=== PATIENT | female | born 1985 | race Caucasian/White ===

== ENCOUNTER 2017-12-31 20:26 | Emergency (ER) | payer OTHER ==
--- NOTE | 2017-12-31 20:59 | RADIOLOGY REPORT (SQ) ---
EXAM DESCRIPTION: HAND LEFT 3 VIEWS COMPLETED DATE/TIME: 12/31/2017 8:45 pm REASON FOR STUDY: injury COMPARISON: None. EXAM PARAMETERS: NUMBER OF VIEWS: Three views. TECHNIQUE: AP, lateral and oblique radiographic images acquired of the left hand. LIMITATIONS: None. FINDINGS: MINERALIZATION: Normal. BONES: No acute fracture or dislocation. No worrisome bone lesions. JOINTS: No effusion. SOFT TISSUES: No significant soft tissue swelling. No radiopaque foreign body. OTHER: No other significant finding. IMPRESSION: NO FRACTURE. TECHNICAL DOCUMENTATION: JOB ID: [id number] [place]-72 2010 [employer]- All Rights Reserved Reading location - IP/workstation name: [email or web address]
--- NOTE | 2017-12-31 22:02 | ER Document Report ---
HPI - HPI Patient complains to provider of: Finger injury Onset: This afternoon Onset/Duration: Sudden Quality of pain: Sharp Pain Level: 4 Context: Patient states she was trying to pull a drink out of a cooler and the drink got stuck. Patient states she started pulling on the drink and her hand came back hitting the cooler door after the drink became dislodged. Patient complains of left third finger pain. Patient denies any other injuries. Associated Symptoms: Other - Left hand pain Exacerbated by: Movement Relieved by: Denies Similar symptoms previously: No Recently seen / treated by doctor: No - ROS ROS below otherwise negative: Yes Systems Reviewed and Negative: Yes All other systems reviewed and negative - NEURO Neurology: DENIES: Weakness - REPRODUCTIVE LMP: na - MUSCULOSKELETAL Musculoskeletal: REPORTS: Extremity pain - DERM Skin Color: Normal Skin Problems: None Past Medical History - General Information source: Patient - Social History Smoking Status: Never Smoker Frequency of alcohol use: None Drug Abuse: None Occupation: [employer] Family History: Reviewed & Not Pertinent Musculoskeletal Medical History: Reports Hx Arthritis Past Surgical History: Reports: Hx Orthopedic Surgery Vertical Provider Document - CONSTITUTIONAL Agree With Documented VS: Yes Exam Limitations: No Limitations General Appearance: WD/WN, No Apparent Distress - INFECTION CONTROL TRAVEL OUTSIDE OF THE [place] IN LAST 30 DAYS: No - HEENT HEENT: Atraumatic, Normocephalic - NECK Neck: Normal Inspection - RESPIRATORY Respiratory: No Respiratory Distress - CARDIOVASCULAR Pulses: Normal: Radial - MUSCULOSKELETAL/EXTREMETIES Musculoskeletal/Extremeties: MAEW, FROM, Tender - Left third finger tenderness with flexion, no tendon deficit, no deformity, no ecchymosis, No Edema. negative: Eccymosis - NEURO Level of Consciousness: Awake, Alert, Appropriate Motor/Sensory: No Motor Deficit, No Sensory Deficit - DERM Integumentary: Warm, Dry, No Rash Course - Vital Signs Vital signs: Temp Pulse Resp BP Pulse Ox 98.9 F 58 L 18 128/59 H 100 12/31/17 21:04 12/31/17 21:04 12/31/17 21:04 12/31/17 21:04 12/31/17 21:04 - Diagnostic Test Radiology reviewed: Reports reviewed Procedures - Immobilization Left Finger 3rd digit Pre-Proc Neuro Vasc Exam: Normal Immobilizer type: Finger splint (Static) Performed by: PCT Post-Proc Neuro Vasc Exam: Normal Alignment checked and good: Yes Discharge - Discharge Clinical Impression: Finger sprain Qualifiers: Encounter type: initial encounter Finger: middle finger Sprain of finger site: unspecified site Laterality: left Qualified Code(s): S63.613A - Unspecified sprain of left middle finger, initial encounter Condition: Stable Disposition: HOME, SELF-CARE Instructions: Ice & Elevation ([facility]), Sprained Finger ([facility]), Temporary Splint ( [facility]) Additional Instructions: Return immediately for any new or worsening symptoms Followup with your primary care provider, call tomorrow to make a followup appointment Wear the finger splint for the next 3-4 days and then remove. If still having pain follow-up with orthopedics for further evaluation. Forms: Return to Work Referrals: [facility] FOR [facility]ERY ([facility]) [Provider Group] - Follow up as needed
[2017-12-31 22:35] VITALS: BP 119/84
== END 2017-12-31 22:35 | disposition home or self-care (01) ==
LOC: ER 20:26
DX: S63.613A Unspecified sprain of left middle finger, initial encounter (principal); X50.0XXA Overexertion from strenuous movement or load, initial encounter
CPT/HCPCS: 99283

== ENCOUNTER 2018-02-26 22:20 | Emergency (ER) | payer OTHER ==
--- NOTE | 2018-02-26 22:30 | ER Document Report ---
HPI - HPI Patient complains to provider of: Fever chills flank pain Onset: Yesterday Pain Level: 3 Context: 32-year-old non-smoker normally healthy developed fever of 102 with chills and sweats, urinary urgency and vomiting yesterday. Today she went to work at [employer] and still feels sick and has left flank pain. No fever today. No vomiting today. She took [id number] Azo and cranberry juice yesterday. She is prone to urinary tract infections. No known allergies. Associated Symptoms: None Exacerbated by: Denies Past Medical History - General Information source: Patient - Social History Smoking Status: Never Smoker Frequency of alcohol use: None Drug Abuse: None Occupation: [employer] Lives with: Family Family History: Reviewed & Not Pertinent Renal/ Medical History: Denies: Hx Peritoneal Dialysis Musculoskeletal Medical History: Reports Hx Arthritis Past Surgical History: Reports: Hx Orthopedic Surgery Vertical Provider Document - INFECTION CONTROL TRAVEL OUTSIDE OF THE [place] IN LAST 30 DAYS: No Course - Re-evaluation Re-evalutation: 02/26/18 23:09 Urinalysis shows 1+ bacteria and greater than 182 WBCs. Urine culture is pending. Since she has flank pain I will give her Rocephin 1 g IM with a prescription for cephalexin that she can take tomorrow. 02/26/18 23:09 - Vital Signs Vital signs: Temp Pulse Resp BP Pulse Ox 98.7 F 76 16 131/85 H 97 02/26/18 22:25 02/26/18 22:25 02/26/18 22:25 02/26/18 22:25 02/26/18 22:25 Discharge - Discharge Clinical Impression: Urinary tract infection, Flank pain Condition: Good Disposition: HOME, SELF-CARE Instructions: Acetaminophen, Urinary Tract Infection ([facility]), Rocephin ([facility]), Cephalexin ([facility]), Flank Pain ([facility]) Additional Instructions: Tylenol up to 4000 mg a day for pain, fever Rocephin 1 g is been given to you to treat the urinary tract infection Return to the emergency room if you develop a fever and vomiting again Cephalexin 4 times a day start that tomorrow Urine culture is pending Prescriptions: Cephalexin Monohydrate [Keflex 500 mg Capsule] 500 mg PO QID #40 capsule Forms: Return to Work Referrals: BOB OLGUIN FNP [NO LOCAL MD] - Follow up tomorrow
[2018-02-26 22:56] LABS: APPEARANCE,URINE CLOUDY; BILIRUBIN,URINE NEGATIVE (NEGATIVE); COLOR,URINE YELLOW; GLUCOSE, URINE NEGATIVE (NEGATIVE); KETONES,URINE NEGATIVE (NEGATIVE); LEUKOCYTE ESTERASE,URINE LARGE (NEGATIVE); NITRITE,URINE NEGATIVE (NEGATIVE); PROTEIN,URINE NEGATIVE (NEGATIVE); URINE SPECIFIC GRAVITY 1.018; UROBILINOGEN,URINE NEGATIVE mg/dL (<2.0)
[2018-02-26] MEDS ORDERED: CEFTRIAXONE INJ 1000 MG VIAL IM ONE (23:09)
[2018-02-26] MEDS ORDERED: LIDOCAINE 1% INJ-PF (10 MG/ML) 30 ML SDV INJ ONE (23:23)
[2018-02-26 23:46] VITALS: BP 124/75
== END 2018-02-27 00:03 | disposition home or self-care (01) ==
LOC: ER 22:20
DX: N39.0 Urinary tract infection, site not specified (principal); R50.9 Fever, unspecified; R10.9 Unspecified abdominal pain; M19.90 Unspecified osteoarthritis, unspecified site
CPT/HCPCS: 99284; 96372; 87086; 87088; 81001; 87186; J3490; J0696

== ENCOUNTER 2018-06-03 17:13 | Emergency (ER) | payer OTHER ==
--- NOTE | 2018-06-03 18:25 | ER Document Report ---
ED Medical Screen (RME) - General Chief Complaint: Chest Pain Stated Complaint: CHEST PAIN, SOB, FINGER/TOE NUMBNESS Time Seen by Provider: 06/03/18 18:19 Mode of Arrival: Ambulatory Information source: Patient Notes: 33-year-old female presents emergency department with complaints of chest pain. Patient states that the pain started yesterday after she received some bad news about her family. She describes it as a pressure sensation in the right chest. No alleviating factors. No exacerbating factors. Patient is having some intermittent shortness of breath and numbness and tingling in the bilateral arms. Patient denies a history of hypertension, hyperlipidemia, diabetes, coronary artery disease, smoking, family history of coronary artery disease. I have greeted and performed a rapid initial assessment of this patient. A comprehensive ED assessment and evaluation of the patient, analysis of test results and completion of the medical decision making process will be conducted by additional ED providers. PHYSICAL EXAMINATION: GENERAL: Well-appearing, well-nourished and in no acute distress. HEAD: Atraumatic, normocephalic. EYES: Pupils equal round extraocular movements intact, conjunctiva are normal. ENT: Nares patent NECK: Normal range of motion LUNGS: No respiratory distress Musculoskeletal: Normal range of motion NEUROLOGICAL: Normal speech, normal gait. PSYCH: Normal mood, normal affect. SKIN: Warm, Dry, normal turgor, no rashes or lesions noted. TRAVEL OUTSIDE OF THE [place] IN LAST 30 DAYS: No - Related Data Allergies/Adverse Reactions: No Known Allergies Allergy (Verified 06/03/18 17:46) Past Medical History Renal/ Medical History: Denies: Hx Peritoneal Dialysis Musculoskeltal Medical History: Reports Hx Arthritis Past Surgical History: Reports: Hx Orthopedic Surgery Physical Exam - Vital signs Vitals: Temp Pulse Resp BP Pulse Ox 98.3 F 86 20 118/70 100 06/03/18 17:42 06/03/18 17:42 06/03/18 17:42 06/03/18 17:42 06/03/18 17:42 Course - Vital Signs Vital signs: Temp Pulse Resp BP Pulse Ox 98.3 F 86 20 118/70 100 06/03/18 17:42 06/03/18 17:42 06/03/18 17:42 06/03/18 17:42 06/03/18 17:42
[2018-06-03] MEDS ORDERED: ASPIRIN 81 MG TABLET, CHEWABLE PO ONE (18:26)
[2018-06-03 18:48] LABS: ABSOLUTE BASOPHILS # (AUTO) 0.1 10^3/uL (0.0-0.2); ABSOLUTE EOSINOPHILS # (AUTO) 0.1 10^3/uL (0.0-0.6); ABSOLUTE LYMPHOCYTES (AUTO) 2.4 10^3/uL (0.5-4.7); ABSOLUTE MONOCYTES (AUTO) 0.8 10^3/uL (0.1-1.4); ABSOLUTE NEUT (AUTO) 5.5 10^3/uL (1.7-8.2); BASOPHILS % (AUTO) 0.7 % (0-2); EOSINOPHILS % (AUTO) 1.1 % (0-6); HEMATOCRIT 43.4 % (36.0-47.0); HEMOGLOBIN 14.7 g/dL (12.0-15.5); LYMPHOCYTES % (AUTO) 27.3 % (13-45); MEAN CORPUSCULAR HGB CONC 33.9 g/dL (32.0-36.0); MEAN CORPUSCULAR VOLUME 89 fl (80-97); MONOCYTES % (AUTO) 9.2 % (3-13); PLATELET COUNT 256 10^3/uL (150-450); RED CELL DISTRIBUTION WIDTH 13.1 % (11.5-14.0); SEGMENTED NEUTROPHILS % (AUTO) 61.7 % (42-78); TOTAL CELLS COUNTED % (AUTO) 100 %; WHITE BLOOD COUNT 8.9 10^3/uL (4.0-10.5)
--- NOTE | 2018-06-03 18:52 | EKG REPORT ---
SEVERITY:- ABNORMAL ECG - SINUS RHYTHM FIRST DEGREE AV BLOCK : Confirmed by: Santana Aguilar MD 03-Jun-2018 18:52:15
[2018-06-03 19:01] LABS: ALANINE AMINOTRANSFERASE 13 U/L (9-52); ALBUMIN 5.2 g/dL (3.5-5.0); ALKALINE PHOSPHATASE 66 U/L (38-126); ANION GAP 13 (5-19); ASPARTATE AMINO TRANSFERASE 27 U/L (14-36); BILIRUBIN,DIRECT 0.4 mg/dL (0.0-0.4); BILIRUBIN,TOTAL 0.6 mg/dL (0.2-1.3); BLOOD UREA NITROGEN 11 mg/dL (7-20); CARBON DIOXIDE 23 mmol/L (22-30); CHLORIDE 106 mmol/L (98-107); GLUCOSE 81 mg/dL (75-110); POTASSIUM 4.4 mmol/L (3.6-5.0); SODIUM 141.6 mmol/L (137-145); TOTAL PROTEIN 8.6 g/dL (6.3-8.2)
--- NOTE | 2018-06-03 19:06 | RADIOLOGY REPORT (SQ) ---
EXAM DESCRIPTION: CHEST SINGLE VIEW COMPLETED DATE/TIME: 06/03/2018 6:57 pm REASON FOR STUDY: chest pain COMPARISON: None. EXAM PARAMETERS: NUMBER OF VIEWS: One view. TECHNIQUE: Single frontal radiographic view of the chest acquired. RADIATION DOSE: NA LIMITATIONS: None. FINDINGS: LUNGS AND PLEURA: No opacities, masses or pneumothorax. No pleural effusion. MEDIASTINUM AND HILAR STRUCTURES: No masses. Contour normal. HEART AND VASCULAR STRUCTURES: Heart normal in size. Normal vasculature. BONES: No acute findings. HARDWARE: None in the chest. OTHER: No other significant finding. IMPRESSION: NO ACUTE RADIOGRAPHIC FINDING IN THE CHEST. TECHNICAL DOCUMENTATION: JOB ID: [id number] [employer]- All Rights Reserved Reading location - IP/workstation name: [email or web address]
[2018-06-03 19:25] LABS: APPEARANCE,URINE SLIGHTLY-CLOUDY; BILIRUBIN,URINE NEGATIVE (NEGATIVE); COLOR,URINE YELLOW; GLUCOSE, URINE NEGATIVE (NEGATIVE); KETONES,URINE NEGATIVE (NEGATIVE); LEUKOCYTE ESTERASE,URINE NEGATIVE (NEGATIVE); NITRITE,URINE NEGATIVE (NEGATIVE); PROTEIN,URINE NEGATIVE (NEGATIVE); URINE SPECIFIC GRAVITY 1.026
[2018-06-03 19:36] LABS: URINE AMPHETAMINES SCREEN NEGATIVE; URINE BARBITURATES SCREEN NEGATIVE; URINE BENZODIAZEPINES SCREEN UNCONFIRMED POSITIVE; URINE COCAINE SCREEN NEGATIVE; URINE MARIJUANA (THC) SCREEN NEGATIVE; URINE METHADONE SCREEN NEGATIVE; URINE PHENCYCLIDINE SCREEN NEGATIVE
--- NOTE | 2018-06-03 20:28 | ER Document Report ---
ED General - General Chief Complaint: Chest Pain Stated Complaint: CHEST PAIN, SOB, FINGER/TOE NUMBNESS Time Seen by Provider: 06/03/18 18:19 Primary Care Provider: DALE,PORTIA [Primary Care Provider] - Follow up as needed Mode of Arrival: Ambulatory Notes: Patient is a 33-year-old female that comes to the emergency department for chief complaint of pain in the right side of her chest that radiates down her right arm and tingling in all her extremities. Symptoms started yesterday immediately when she received bad news about her grandfather having fallen and broken bones. She states she is upset that she is unable to travel to him in [place]. She states that the episode was really bad, she was short of breath, she became shaky and sweaty, she states that this did gradually resolve but she has remained anxious and pain since that time. Past medical history of anxiety, takes Topamax as a mood stabilizer and for weight loss. Denies smoking, recreational drugs, personal or family history of heart disease, personal or family history of blood clot. She is not on a contraceptive. TRAVEL OUTSIDE OF THE [place] IN LAST 30 DAYS: No - Related Data Allergies/Adverse Reactions: No Known Allergies Allergy (Verified 06/03/18 17:46) Past Medical History - General Information source: Patient - Social History Smoking Status: Never Smoker Drug Abuse: None Lives with: Family Family History: Reviewed & Not Pertinent Patient has suicidal ideation: No Patient has homicidal ideation: No Renal/ Medical History: Denies: Hx Peritoneal Dialysis Musculoskeletal Medical History: Reports Hx Arthritis Psychiatric Medical History: Reports: Hx Anxiety Past Surgical History: Reports: Hx Orthopedic Surgery - Immunizations Immunizations up to date: Yes Hx Diphtheria, Pertussis, Tetanus Vaccination: Yes Review of Systems - Review of Systems Constitutional: See HPI EENT: No symptoms reported Cardiovascular: See HPI Respiratory: See HPI Gastrointestinal: No symptoms reported Genitourinary: No symptoms reported Female Genitourinary: No symptoms reported Musculoskeletal: See HPI Skin: No symptoms reported Hematologic/Lymphatic: No symptoms reported Neurological/Psychological: See HPI Physical Exam - Vital signs Vitals: Temp Pulse Resp BP Pulse Ox 98.3 F 86 20 118/70 100 06/03/18 17:42 06/03/18 17:42 06/03/18 17:42 06/03/18 17:42 06/03/18 17:42 - Notes Notes: GENERAL: Alert, interacts well. No acute distress. HEAD: Normocephalic, atraumatic. EYES: Pupils equal, round, and reactive to light. Extraocular movements intact. ENT: Oral mucosa moist, tongue midline. Oropharynx unremarkable. Airway patent. Nares patent, no nasal septal hematoma, TM's intact. NECK: Full range of motion. Supple. Trachea midline. LUNGS: Clear to auscultation bilaterally, no wheezes, rales, or rhonchi. No respiratory distress. There is some reproducible tenderness over the right pectoralis muscle and with movement of the right arm. Remaining chest exam unremarkable. HEART: Regular rate and rhythm. No murmur ABDOMEN: Soft, non-tender. Non-distended. Bowel sounds present in all 4 quadrants. GENITOURINARY: Deferred EXTREMITIES: Moves all 4 extremities spontaneously. No edema, normal radial and dorsalis pedis pulses bilaterally. No cyanosis. BACK: no cervical, thoracic, lumbar midline tenderness. No saddle anesthesia, normal distal neurovascular exam. NEUROLOGICAL: Alert and oriented x3. Normal speech. [cranial nerves II through XII grossly intact]. PSYCH: Normal affect, normal mood. SKIN: Warm, dry, normal turgor. No rashes or lesions noted. Course - Re-evaluation Re-evalutation: EKG sinus rhythm with no T wave inversions or ST segment changes in consecutive leads. [place] interval is prolonged with first-degree heart block. Otherwise unremarkable exam. Patient did not have dizziness or syncope. She has no cu rrent symptoms. Patient only has symptoms when she feels anxious, she describes symptoms very consistent with a panic attack that occurred yesterday. She has a history of anxiety. No smoking, recreational drugs, lower semi-swelling, recent travel or surgery. PERC score is 0. CBC, chemistry, troponin unremarkable. Chest x-ray unremarkable. Patient asymptomatic except for palpation of the chest wall. Discussed workup in detail. Discussed options and recommendations. Discussed chest wall pain and treatment, patient states she has a muscle relaxer at home left over from a different injury, she also has naproxen at home, she states she will use these. She states that she would like something low-dose to take in the event of a panic attack. She was provided with 0.5 mg Ativan to take only in the case of a panic attack. Discussed follow-up and return precautions in detail. Patient states understanding and agreement with plan. - Vital Signs Vital signs: Temp Pulse Resp BP Pulse Ox 98.4 F 86 12 115/82 100 06/03/18 20:49 06/03/18 17:42 06/03/18 20:49 06/03/18 20:49 06/03/18 20:49 - Laboratory Result Diagrams: 06/03/18 18:37 06/03/18 18:37 Laboratory results interpreted by me: 06/03/18 06/03/18 18:37 19:08 Total Protein 8.6 H Albumin 5.2 H Urine Urobilinogen 2.0 H Discharge - Discharge Clinical Impression: Chest wall pain, Panic attack as reaction to stress Chest pain Qualifiers: Chest pain type: unspecified Qualified Code(s): R07.9 - Chest pain, unspecified Condition: Stable Disposition: HOME, SELF-CARE Additional Instructions: Your workup at this time including EKG, chest x-ray, laboratory workup does not show any concerning findings in regards to your symptoms. Your evaluation indicates both inflammation of the cartilage along the right side of your chest wall and along the pectoralis muscle on the right, this can take time to resolve, I recommend heat to the area, naproxen, muscle relaxer. In the event of panic attack take the prescribed medication only if needed. Continue current medications otherwise. Return if you worsen including difficulty breathing, passing out, severe pain in your chest, vomiting, fever, or any other concerning symptoms. Prescriptions: Lorazepam [Ativan 0.5 mg Tablet] 0.5 mg PO Q4 PRN #10 tab PRN Reason: Forms: Return to Work Referrals: [facility] [Primary [facility] Provider] - Follow up as needed
[2018-06-03 20:54] VITALS: BP 115/82
== END 2018-06-03 21:00 | disposition home or self-care (01) ==
LOC: ER 17:13
DX: F43.0 Acute stress reaction (principal); R07.9 Chest pain, unspecified
CPT/HCPCS: 36415; 71045; 80053; 80307; 81001; 81025; 84484; 85025; 93005; 93010; 99285

== ENCOUNTER 2018-08-10 09:56 | Emergency (ER) | payer OTHER ==
--- NOTE | 2018-08-10 10:21 | ER Document Report ---
ED GI/ - General Chief Complaint: Urinary Frequency Stated Complaint: UTI SYMPTOMS Time Seen by Provider: 08/10/18 10:17 Primary Care Provider: [facility] [Primary Care Provider] - Follow up as needed Mode of Arrival: Ambulatory Information source: Patient Notes: Patient is an otherwise healthy 33-year-old female presenting with chief complaint of dysuria, frequency and urgency. Patient reports history of UTIs in the past, states this feels like a UTI that started on Friday. Patient denies any fevers, nausea, vomiting or diarrhea. TRAVEL OUTSIDE OF THE [place] IN LAST 30 DAYS: No - Related Data Allergies/Adverse Reactions: No Known Allergies Allergy (Verified 06/03/18 17:46) Past Medical History - General Information source: Patient - Social History Smoking Status: Never Smoker Frequency of alcohol use: None Drug Abuse: None Family History: Reviewed & Not Pertinent Renal/ Medical History: Denies: Hx Peritoneal Dialysis Musculoskeletal Medical History: Reports Hx Arthritis Psychiatric Medical History: Reports: Hx Anxiety Past Surgical History: Reports: Hx Orthopedic Surgery - Immunizations Immunizations up to date: Yes Hx Diphtheria, Pertussis, Tetanus Vaccination: Yes Review of Systems - Review of Systems Constitutional: No symptoms reported. denies: Fever EENT: No symptoms reported Cardiovascular: No symptoms reported Respiratory: No symptoms reported Gastrointestinal: No symptoms reported. denies: Abdominal pain, Diarrhea, Nausea, Vomiting Genitourinary: Burning, Dysuria, Frequency, Urgency. denies: Flank pain Female Genitourinary: No symptoms reported Musculoskeletal: No symptoms reported Skin: No symptoms reported Hematologic/Lymphatic: No symptoms reported Neurological/Psychological: No symptoms reported Physical Exam - Vital signs Vitals: Temp Pulse Resp BP Pulse Ox 98.6 F 64 16 123/74 98 08/10/18 10:19 08/10/18 10:19 08/10/18 10:19 08/10/18 10:19 08/10/18 10:19 - Notes Notes: PHYSICAL EXAMINATION: GENERAL: Well-appearing, well-nourished and in no acute distress. HEAD: Atraumatic, normocephalic. EYES: Pupils equal round and reactive to light, extraocular movements intact, conjunctiva are normal. ENT: Nares patent, oropharynx clear without exudates. Moist mucous membranes. NECK: Normal range of motion, supple without lymphadenopathy LUNGS: Breath sounds clear to auscultation bilaterally and equal. No wheezes rales or rhonchi. HEART: Regular rate and rhythm without murmurs ABDOMEN: Soft, nontender, nondistended abdomen. No guarding, no rebound. No masses appreciated. Female : No CVAT. Musculoskeletal: Normal range of motion, no pitting or edema. No cyanosis. NEUROLOGICAL: Cranial nerves grossly intact. Normal speech, normal gait. Normal sensory, motor exams PSYCH: Normal mood, normal affect. SKIN: Warm, Dry, normal turgor, no rashes or lesions noted. Course - Re-evaluation Re-evalutation: Urinalysis positive for nitrites and moderate leukocyte esterase. Culture pending. Will start patient on antibiotics. Patient declines need for Pyridium. - Vital Signs Vital signs: Temp Pulse Resp BP Pulse Ox 98.9 F 52 L 18 121/65 99 08/10/18 11:24 08/10/18 11:24 08/10/18 11:24 08/10/18 11:24 08/10/18 11:24 - Laboratory Laboratory results interpreted by me: 08/10/18 10:38 Urine Nitrite POSITIVE H Ur Leukocyte Esterase MODERATE H Urine Ascorbic Acid 20 H Discharge - Discharge Clinical Impression: Urinary tract infection Qualifiers: Urinary tract infection type: site unspecified Hematuria presence: without hematuria Qualified Code(s): N39.0 - Urinary tract infection, site not specified Condition: Stable Disposition: HOME, SELF-CARE Additional Instructions: Your urine shows findings consistent with a urinary tract infection. Please take all the antibiotics as directed even if your symptoms have improved. Please follow-up with your primary care physician as needed. Return to emergency room if you develop fever >101F, persistent vomiting, become lethargic, have severe pain in your sides, or any other symptoms that are concerning to you. Prescriptions: Cephalexin [Keflex] 500 mg PO BID #14 capsule Forms: Return to Work Referrals: [facility] [Primary Care Provider] - Follow up as needed
[2018-08-10 10:59] LABS: APPEARANCE,URINE SLIGHTLY-CLOUDY; BILIRUBIN,URINE NEGATIVE (NEGATIVE); COLOR,URINE YELLOW; GLUCOSE, URINE NEGATIVE (NEGATIVE); KETONES,URINE NEGATIVE (NEGATIVE); LEUKOCYTE ESTERASE,URINE MODERATE (NEGATIVE); NITRITE,URINE POSITIVE (NEGATIVE); PROTEIN,URINE NEGATIVE (NEGATIVE); URINE SPECIFIC GRAVITY 1.012; UROBILINOGEN,URINE NEGATIVE mg/dL (<2.0)
[2018-08-10 11:27] VITALS: BP 121/65
== END 2018-08-10 11:27 | disposition home or self-care (01) ==
LOC: ER 09:56
DX: N39.0 Urinary tract infection, site not specified (principal); R30.0 Dysuria; R35.0 Frequency of micturition; R39.15 Urgency of urination
CPT/HCPCS: 81001; 87086; 87088; 87186; 99283